=== PATIENT | female | born 1945 | race Caucasian/White ===

== ENCOUNTER 2017-02-20 05:59 | Inpatient (IN) | payer MEDICARE, OTHER ==
[~2017-02-20] VITALS: Ht 152.4 cm; Wt 100.2 kg
[2017-02-20] MEDS ORDERED: LOPRESSOR 25 MG25 MG PO (06:42)
[2017-02-20] MEDS ORDERED: LASIX40 MG PO (06:44)
[2017-02-20] MEDS ORDERED: PROTONIX40 MG PO (06:44)
[2017-02-20] MEDS ORDERED: XARELTO20 MG PO (06:45)
[2017-02-20] MEDS ORDERED: TYLENOL ARTHRITIS PO (06:46)
[2017-02-20] MEDS ORDERED: SIMVASTATIN10 MG PO (06:47)
[2017-02-21 04:28] LABS: HEMOGLOBIN 10.6 gm/dl (12.3-15.3); RED BLOOD COUNT 3.62 M/UL (4.00-5.10); WHITE BLOOD COUNT 8.7 K/UL (4.5-11.0)
[2017-02-21 04:46] LABS: BUN/CREATININE RATIO 11 (0-10)
[2017-02-22 05:56] LABS: HEMOGLOBIN 10.7 gm/dl (12.3-15.3); RED BLOOD COUNT 3.63 M/UL (4.00-5.10)
[2017-02-22 05:59] LABS: WHITE BLOOD COUNT 11.3 K/UL (4.5-11.0)
[2017-02-22 06:22] LABS: BUN/CREATININE RATIO 12 (0-10)
[2017-02-22] MEDS ORDERED: NORCO 7.5-3251 EACH PO (18:38)
== END 2017-02-22 20:12 | disposition home or self-care (01) | DRG 470 ==
LOC: ZOBSOF 05:59 → M/S 11:31
PROVIDERS: Physician Assistant Medical; ADMIT Orthopaedic Surgery
PROC: 0SRC0J9 Replacement of Right Knee Joint with Synthetic Substitute, Cemented, Open Approach (ICD-10-PCS; principal; 2017-02-20 07:45)
DX: M17.11 Unilateral primary osteoarthritis, right knee (principal); D62 Acute posthemorrhagic anemia; Z68.41 Body mass index [BMI] 40.0-44.9, adult; I50.22 Chronic systolic (congestive) heart failure; I47.1 Supraventricular tachycardia; E66.01 Morbid (severe) obesity due to excess calories; M21.161 Varus deformity, not elsewhere classified, right knee; I48.0 Paroxysmal atrial fibrillation; I11.0 Hypertensive heart disease with heart failure; R00.8 Other abnormalities of heart beat; E78.5 Hyperlipidemia, unspecified; K29.00 Acute gastritis without bleeding; J30.2 Other seasonal allergic rhinitis; G47.33 Obstructive sleep apnea (adult) (pediatric); R09.02 Hypoxemia; Z28.21 Immunization not carried out because of patient refusal; Z79.01 Long term (current) use of anticoagulants; Z79.1 Long term (current) use of non-steroidal anti-inflammatories (NSAID); Z79.899 Other long term (current) drug therapy; Z90.710 Acquired absence of both cervix and uterus; Z90.722 Acquired absence of ovaries, bilateral; Z90.49 Acquired absence of other specified parts of digestive tract; Z98.890 Other specified postprocedural states; Z82.3 Family history of stroke; Z80.0 Family history of malignant neoplasm of digestive organs; Z82.49 Family history of ischemic heart disease and other diseases of the circulatory system
CPT/HCPCS: 36415; 71010; 73560; 80048; 80053; 83735; 84443; 85025; 97110; 97116; 97535; C1776; J0171; J0690; J0735; J1885; J2250; J2274; J2370; J2405; J2795; J3010; J3370; J7030; J7050; J7120